=== PATIENT | female | born 1980 | race Caucasian/White ===

== ENCOUNTER 2019-02-17 10:34 | Outpatient (REF) | payer MEDICAID, SELFPAY ==
--- NOTE | 2019-02-17 10:00 | PAPFT_PTH ---
PATIENT: India Rodrigues LOC: [facility] U#:[id number] AGE/SX: 38/F ROOM: RE02/17/[address]: Radha Haney NP : 1980 BED: DIS: 02/17/2019 SPEC #: [id number] RECD: 02/17/19 12:48 STATUS: CON REReginaldo #: [id number] NANCY: 02/17/19 10:[address]: Radha Haney NP DEPT: [facility] Cytology RECD BY: Arpita Tenorio ENTERED: 02/17/19 12:48 SP TYPE: PAPFT OTHR DR: Basilia Gordon Tissues: 1 - CX/ENDOCX FOR PAP SMEARS Procedures: PAP THIN PREP/UVM Screening HPV DNA PROBE Comments: [id number] (CHLAMYDIA/GC)
[2019-02-18 15:05] LABS: Chlamydia Result Negative (Negative); GC Result Negative (Negative)
== END 2019-02-17 10:54 ==
LOC: LBN 10:34
PROVIDERS: PCP Nurse Practitioner Family; Visit Provider Nurse Practitioner Women's Health
DX: Z12.4 Encounter for screening for malignant neoplasm of cervix (principal); Z11.3 Encounter for screening for infections with a predominantly sexual mode of transmission
CPT/HCPCS: 87491; 87591; 88142; 87624

== ENCOUNTER 2022-05-08 01:53 | Outpatient (CLI) | payer MEDICAID, SELFPAY ==
--- NOTE | 2022-05-08 07:45 | DI.US_ITS ---
Exam(s) US PELVIS TRANSVAGINAL EXAM: US PELVIS TRANSVAGINAL CLINICAL HISTORY: Heavy menstrual bleeding,MENORRHAGIA, N92.0 TECHNIQUE: Transabdominal and transvaginal imaging was performed using standard protocol. COMPARISON: No exams were available for comparison FINDINGS: UTERUS: Anteverted. 8.9 x 4.7 x 6.2 cm Endometrium: 10 mm Myometrium: Unremarkable. Cervix: Unremarkable. OVARIES: Right: Cyst or mass: None. Left: Cyst or mass: None. DOPPLER: Color: Symmetric and uniform flow to both ovaries. No hyperemia. CUL-DE-SAC: Free fluid: None. IMPRESSION: 1. Normal-appearing uterus with endometrial stripe within normal limits. 2. Unremarkable bilateral ovaries. DATA REPOSITORY:
== END 2022-05-08 02:13 ==
LOC: DI 01:55
PROVIDERS: PCP Nurse Practitioner Family; Visit Provider Nurse Practitioner Women's Health
DX: N92.0 Excessive and frequent menstruation with regular cycle (principal)
CPT/HCPCS: 76830; 76856

== ENCOUNTER 2022-06-12 10:06 | Outpatient (CLI) | payer MEDICAID, SELFPAY ==
[2022-06-12 09:39] LABS: HCT 35.6 % (36.0-46.0); HGB 11.5 g/dL (11.2-15.7)
== END 2022-06-12 10:07 | disposition home or self-care (01) ==
LOC: LBO 10:06
PROVIDERS: PCP Nurse Practitioner Family; Visit Provider Obstetrics & Gynecology
DX: Z01.818 Encounter for other preprocedural examination (principal)
CPT/HCPCS: 36415; 86850; 86900; 86901; 85014; 85018

== ENCOUNTER 2022-06-14 08:40 | Day surgery (SDC) | payer MEDICAID, SELFPAY ==
[2022-06-14] VITALS (9 sets, daily range): BP systolic 94–153; BP diastolic 48–99; PULSE 53–76; RESP 11–16; TEMP 36.3–36.7; O2SAT 98–100; BMI 26.6
--- NOTE | 2022-06-14 09:06 | ANES.PREOP_ITS ---
General Info Date of Service Date Performed: 06/14/22 Height: 5 ft 8 in Weight: 79.379 kg Body Mass Index (BMI): 26.6 Surgical Procedure: Operation Date: 06/14/22 11:25 Proposed Procedure Side Surgeon p Endometrial Ablation- Sharon Frey MD s Salpingectomy Laparoscopic Bilateral Le Frey MD Meds Allergies and Home Medications Allergies Allergy/AdvReac Type Severity Reaction Status Date / Time doxycycline Allergy Nausea Verified 06/14/22 09:10 erythromycin base Allergy HIVES Unverified 06/14/22 09:09 Home Medication Medication Instructions Recorded magnesium oxide 400 mg PO DAILY 03/02/22 vitamin B complex 1 tab PO DAILY 03/02/22 oxycodone 5 mg capsule 5 mg PO Q6H PRN pain #5 caps 06/06/22 Current Visit Medications: Current Medications Generic Name Dose Route Start Last Admin Trade Name Freq PRN Reason Stop Dose Admin Ringer's Solution 1,000 mls @ 125 mls/hr 06/14/22 06:00 IV 07/13/22 23:59 INFUSION JOHN IV Miscellaneous Supplies 1 each 06/14/22 06:00 Iv Access IV 07/13/22 23:59 DIRECTED JOHN Sodium Chloride 0 ml 06/14/22 06:00 Normal Saline Flush 10 Ml Syr IV 07/13/22 23:59 PRN PRN Sodium Chloride 0 ml 06/14/22 06:00 Normal Saline 10 Ml Vial IJ 07/13/22 23:59 DIRECTED PRN Sterile Water 0 ml 06/14/22 06:00 Water,Injection,Sterile 10 Ml Vial IJ 07/13/22 23:59 DIRECTED PRN PFSH Active Problems Active Problems: Problem Status Onset Code Menorrhagia with regular cycle N92.0 Medical History Medical History Depression Skin lesion of face Snoring Tobacco Smoking/Tobacco Use Status: Never Passive smoking exposure: No Alcohol Alcohol Intake: current Alcohol intake frequency: a few times a month Substance Use Substance use: Never Substance use type: does not use Prental History History 2 Para 2 Hx # Term Pregnancies Multiple births Hx # Pregnancies Ectopic pregnancies AB induced Hx Number of Living Children AB spontaneous Past Pregnancies Del. Date GA/Weeks # Preg Succ Route Wgt Sex Labor Lgth Anesth esia Location Prov Complic 01/03/00 40 Yes vaginal 3260.195 g Female [facility] [place] 02/23/01 40 Yes vaginal 3543.69 g Male Adam [address] Delivery Date: 02/23/01 Last Updated by: Aleja Tyler Nuchal cord Vital Signs and Lab Results Vital Signs Most Recent Vital Signs in EMR: Temp Pulse Resp BP Pulse Ox 36.7 C 76 16 119/73 98 06/14/22 09:13 06/14/22 09:13 06/14/22 09:13 06/14/22 09:13 06/14/22 09:13 Lab Results Blood Type / Crossmatch: Patient ABO/Rh A Positive 06/12/22 Antibody Screen NEGATIVE 06/12/22 Complete Blood Count: Hemoglobin 11.5 g/dL (11.2-15.7) 06/12/22 09:25 Hematocrit 35.6 % (36.0-46.0) L 06/12/22 09:25 Complete Metabolic Panel: No Data to Display Liver Function Panel: No Data to Display Coagulation Panel: No Data to Display Cardiac Panel: No Data to Display Arterial Blood Gas: No Data to Display Venous Blood Gas: No Data to Display Pancreas Panel: No Data to Display Thyroid Panel: No Data to Display Infectious Disease: No Data to Display Blood Cultures: No Data to Display Toxicology Panel: No Data to Display Panel: No Data to Display Anesthesia Assessment and Plan Anesthesia History Personal History: No History of General Anesthesia Family History: No Family History of Anesthesia Complications Exercise Tolerance Exercise Tolerance: Metabolic Equivalents>4 Pertinent Negatives Pertinent Negatives: No Symptoms of GERD Cardiac & Pulmonary Exam Cardiac Exam: Normal S1/S2 Heart Sounds Pulmonary Exam: Clear Bilateral Breath Sounds Implantable Cardiac Device Does patient have a Pacemaker or an ICD?: No Airway Exam Known Difficult Airway: No Mallampati Class: 2 Mouth Opening: Normal (> 3cm) Thyromental Distance: Greater than 3 cm Neck Range of Motion: Full ROM Neck Circumference: Normal Teeth Condition: Normal Dentition ASA Classification ASA Score: ASA 2 Emergency Case?: No NPO Status NPO Status: NPO Clears >2 hours, Solids >8 hours Status Status: Negative HCG Anesthesia Plan Resuscitation Status: Full Code Anesthesia Technique: General Anesthesia Airway Planned: Endotracheal Tube Monitors Used: Standard Monitors Preoperative Comments:: 42 yo female for ablation and bilateral salping. Sig PMHx: ROLAN, depression, never smoker, occ EtOH.
[2022-06-14] MEDS: Lactated Ringers 1,000 ML 125 ML IV (09:36)
--- NOTE | 2022-06-14 12:33 | FALL_PTH ---
PATIENT: India Rodrigues LOC: [facility] U#:[id number] AGE/SX: 42/F ROOM: RE06/14/[address]: Le Frey MD : 1980 BED: DIS: 06/14/2022 SPEC #: [id number] RECD: 06/14/22 16:41 STATUS: CON REReginaldo #: [id number] NANCY: 06/14/22 12:[address]: Le Frey DEPT: Surgical Specimen RECD BY: Arpita Tenorio ENTERED: 06/14/22 16:45 SP TYPE: Fall OTHR DR: India Fuentes Tissues: 1 - FALLOPIAN TUBE (STERILIZATION) 2 - FALLOPIAN TUBE (STERILIZATION) 3 - ENDOMETRIUM BX/CURRETTE Procedures: GROSS AND MICRO LEVEL 2 GROSS AND MICRO LEVEL 4 Comments: [id number]
[2022-06-14] MEDS: Bupivacaine 0.25% Pres-Free 30 ML VIAL (12:38)
[2022-06-14] MEDS: fentaNYL 100 MCG/2 ML VIAL IVP (13:21)
--- NOTE | 2022-06-14 13:40 | W.PM.DSUDISC ---
Date of service: 06/14/22 Time of Service: 13:40 Discharge Plan Disposition Patient Disposition: Home Condition: Good Discharge Details Attending Provider: Le Frey Primary Care Provider: India Fuentes Home Meds and New Rx's Prescriptions: No Action oxycodone 5 mg capsule 5 mg PO Q6H MDD 4 PRN (Reason: pain) Qty: 5 0RF vitamin B complex Tablet 1 tab PO DAILY magnesium oxide 400 mg magnesium tablet 400 mg PO DAILY Discharge Instructions Stand Alone Forms: Anesthesia Discharge Inst., DSU Post Cable Driller SurgeryW/Incision, Press Ganey (DSU) Activity:: No lifting >20lbs Remove Dressings/Wound Care:: 24 hours Shower/Bathe:: 24 hours Diet:: As Tolerated Discharge Orders Discharge Orders: Discharge Order (Routine); Ordered 06/14/22 Ordered By: Le Frey DS: Diagnosis Discharge Diagnosis (1) Menorrhagia with regular cycle: Status: Acute Asessment and Plan: S/p uncomplicated endometrial ablation (2) Encounter for sterilization: Status: Acute Asessment and Plan: S/p uncomplicated Laparoscopic B/L tubal ligation
--- NOTE | 2022-06-14 14:11 | W.ANESPOSTOP ---
Postoperative Evaluation Date, Time and Location Date Performed: 06/14/22 Time Performed: 13:50 Patient Location: PACU Vital Signs Most Recent Imported Vital Signs: Most Recent Vital Signs Temp Pulse Resp BP Pulse Ox 36.7 C 55 L 11 L 94/48 L 100 06/14/22 14:02 06/14/22 14:02 06/14/22 14:02 06/14/22 14:02 06/14/22 14:02 Pain Score Most Recent Pain Score: Most Recent Pain Score Pain Level 4 06/14/22 14:02 Assessment Mental Status: Arousable with meaningful communication Airway and Respiratory Function: Patent airway with normal (patient baseline) respiratory exam Cardiovascular Function: Hemodynamically Stable Hydration Status: Adequately Hydrated Nausea & Vomiting: No Nausea or Vomiting Pain: Pain is Moderate or Severe Postoperative Pain Management: Pain being addressed with medication Peripheral Nerve Block: Patient did not receive a nerve block
[2022-06-14] MEDS: oxyCODONE 5 MG TAB PO (15:07)
--- NOTE | 2022-06-14 16:46 | W.PM.OP ---
Date of service: 06/14/22 Time of Service: 12:30 Operative Note Operative Note DATE OF PROCEDURE: 06/14/22 PRE-OP DIAGNOSIS: Abnormal uterine bleeding Desires permanent sterilization POST-OP DIAGNOSIS: same PROCEDURE: Laparoscopic bilateral tubal ligation via salpingectomy. Hysteroscopy, dilation and curettage, endometrial ablation with novasure. SURGEON: Le Frey ASSISTING SURGEON: Cassie Garay Refer to Anesthesia Record ESTIMATED BLOOD LOSS: 0 COMPLICATIONS: None Findings: Normal appearing uterus, ovaries, tubes. Normal abdominal cavity on brief inspection. Procedure Description: After informed consent was signed the patient was taken to the operating room and given general anesthesia.? SCDs were placed on her legs.? She was prepped and draped in the dorsal lithotomy position in the [facility].? Her bladder was drained of urine prior to arrival in the OR. The infraumbilical fold was grasped and injected with 0.25% marcaine with epinephrine. A 5mm incision was made in the infraumbilical fold with the scalpel. A hemostat was used to bluntly dissect the subcuticular layers. The fascia was grasped with jessenia clamps and incised. The incision was entended with blunt pressure. The perintoneum was grasped and incised with metzembaum scissors. The visiport was used to enter the abdomen under direct visualization. Once entrance to the abdominal cavity was confirmed the CO2 was turned on and the abdomen was insufflated. Two lateral 5mm ports were then placed under direct visualization. The left tube was identified and followed to the fimbriated end. The tube was grasped and elevated and the mesosalpinx was clamped, cauterized and cut with the ligasure device. The was continued along the length of the tube. The proximal end of the tube was then transected with the ligasure. Good hemostasis was noted. The right tube was then identified and followed to the fimbriated end. The tube was grasped and elevated and the mesosalpinx was clamped, cauterized and cut with the ligasure device. The was continued along the length of the tube. The proximal end of the tube was then transected with the ligasure. Good hemostasis was noted on both sides. The ports were removed. The gas was released from the abdomen. The skin incisions were then closed with 4-0 vicryl. Mastisol and steristrips were placed. A speculum was placed into the vagina to reveal the cervix.? The anterior lip of the cervix was grasped with a single tooth tenaculum.? The cervical length was measured with a large dilator. The cervix was then dilated until a uterine sound could be inserted to measure the total length. The?cavity length was then calculated. The hysteroscope was assembled and the uterine cavity was visualized. No obvious abnormalities were noted. A sharp curettage was performed. The novasure device was opened and the cavity length set. It was inserted into the endometrial cavity and the width was measured. The cavity assessment was performed and passed. The device was then deployed for the appropriate amount of time. The device was removed and the wand inspected and appeared thoroughly charred. The hysteroscope was again inserted into the endometrial cavity and it appeared to be thoroughly treated. It was removed from the endometrial cavity. The tenaculum was removed from the cervix with good hemostasis.? The speculum was removed from the vagina. The patient was placed back into the supine position.? She was moved to the stretcher and taken to the recovery room in stable condition.
== END 2022-06-14 15:38 | disposition home or self-care (01) ==
PROVIDERS: PCP Nurse Practitioner Family; Visit Provider Obstetrics & Gynecology
PROC: (CPT 58353; principal; 2022-06-14 11:15)
PROC: (CPT 58661; 2022-06-14 11:15)
DX: N92.0 Excessive and frequent menstruation with regular cycle (principal); Z30.2 Encounter for sterilization
CPT/HCPCS: 58661; 58563; 81025; 88305; 88302; J0131; J1100; J1885; J2250; J2405; J2704; J3010; J3475

== ENCOUNTER 2023-04-24 14:22 | Outpatient (REF) | payer MEDICAID, SELFPAY ==
--- NOTE | 2023-04-24 13:48 | PAPFT_PTH ---
PATIENT: India Rodrigues LOC: [facility] U#:[id number] AGE/SX: 43/F ROOM: RE04/24/[address]: Le Frey MD : 1980 BED: DIS: 04/24/2023 SPEC #: [id number] RECD: 04/24/23 17:49 STATUS: CON REQ #: [id number] NANCY: 04/24/23 13:[address]: Le Frey DEPT: [facility] Cytology RECD BY: Arpita Tenorio ENTERED: 04/24/23 17:50 SP TYPE: PAPFT OTHR DR: India Fuentes Tissues: 1 - CX/ENDOCX FOR PAP SMEARS Procedures: PAP THIN PREP/UVM Screening HPV DNA PROBE Comments: [id number]
== END 2023-04-24 14:23 | disposition home or self-care (01) ==
LOC: LBN 14:22
PROVIDERS: PCP Nurse Practitioner Family; Visit Provider Obstetrics & Gynecology
DX: Z12.4 Encounter for screening for malignant neoplasm of cervix (principal); Z72.51 High risk heterosexual behavior; Z01.419 Encounter for gynecological examination (general) (routine) without abnormal findings
CPT/HCPCS: 88142; 87624

== ENCOUNTER → 2023-05-02 01:30 | Outpatient (CLI) | payer MEDICAID, SELFPAY ==
--- NOTE | 2023-05-02 09:04 | DI.MAMMO_ITS ---
Exam(s) MAMMO SCREENING EXAM: MAMMO SCREENING CLINICAL HISTORY: screening TECHNIQUE: Bilateral full field digital CC and MLO mammographic images were obtained with 3D tomosyn thesis and utilizing computer aided detection (CAD). COMPARISON: Is a baseline examination. FINDINGS: Masses/Architectural Distortion: There is a partially obscured 1.4 cm nodule in the upper outer quadr ant of the left breast. On the craniocaudad view there also appears to be a partially obscured nodul e more medial measuring 1.2 cm. No areas of architectural distortion are seen. Microcalcifications: No suspicious pleomorphic-type are seen. Skin Thickening/Nipple Retraction: None. IMPRESSION: 1. Left breast nodules. 2. These nodules should be further evaluated with spot compression views. Ultrasound should also be obtained at that time. BI-RADS Category 0 - Assessment Incomplete: Need additional imaging evaluation Breast Density - Category B - Scattered areas of fibroglandular density Breast density category C or D implies that the patient has dense breast tissue. Dense breast tissue is very common and is not abnormal but dense breast tissue can make it harder to find cancer on a ma mmogram. Also, dense breast tissue may increase their breast cancer risk. This information about the result of the mammogram report was provided to the patient to raise their awareness. Use this report when you speak with the patient about their risks for breast cancer, which includes their family hist ory. At that time, you may recommend for more screening tests (Ultrasound or MRI) as they might be us eful based on their risk. A negative radiographic report should not delay biopsy if a dominant or clinically suspicious mass is present. Up to ten percent of cancers are not identified on mammography. A negative report may reinforce clinical impression. Adenosis and dense breasts may obscure an underlying neoplasm. False positive reports average 6 to 10%. Patient will receive a letter notifying them of these results.
== END ==
PROVIDERS: PCP Nurse Practitioner Family; Visit Provider Obstetrics & Gynecology
DX: Z12.31 Encounter for screening mammogram for malignant neoplasm of breast (principal); R92.8 Other abnormal and inconclusive findings on diagnostic imaging of breast
CPT/HCPCS: 77063; 77067

== ENCOUNTER → 2023-05-08 01:09 | Outpatient (CLI) | payer MEDICAID, SELFPAY ==
--- NOTE | 2023-05-08 | DI.US_ITS ---
Exam(s) MG MAMMO SCREEN CALL BACK UNI US BREAST LT LIMITED EXAM: MG MAMMO SCREEN CALL BACK UNI and U/S breast LT limited CLINICAL HISTORY: F/U MAMMO, LT BREAST NODULES,R92.8. TECHNIQUE: Craniocaudal and mediolateral oblique Full Field Digital Mammography views of the left br east with Computer Aided Diagnosis followed by Tomosynthesis and left breast ultrasound. COMPARISON: Comparison is made with prior examinations. FINDINGS: Mammography/Tomosynthesis: Masses/Architectural Distortion: There is a well-circumscribed nodule at the 2 to 3 o'clock position of the left breast measuring 1.3 cm on the mammogram. No areas of architectural distortion are prese nt. Microcalcifictions: No suspicious pleomorphic-type are seen. Skin Thickening/Nipple Retraction: None. Limited left breast US: Echotexture: Normal appearance of the glandular tissue. Shadowing: No suspicious foci. Cyst: None. Solid lesions: There is a well-circumscribed nodule in the left breast at the 2 o'clock position david uring 1.0 cm in diameter. This is most suggestive of benign lesion such as a fibroadenoma. Ductal dilation: None. IMPRESSION: 1. No evidence of malignancy is noted. 2. A six-month follow-up left mammogram and ultrasound is requested for re-evaluation. 3. The findings were discussed with the patient on the date of the examination. BI-RADS Category 3 - 6 month - Probably Benign Finding: Recommend follow-up imaging in 6 months Breast Density - Category B - Scattered areas of fibroglandular density Breast density Category C or D implies that the patient has dense breast tissue. Dense breast tissue can make it harder to find cancer on a mammogram. Dense breast tissue is also associated with an incr eased risk of breast cancer. This information about the result of the mammogram report was provided to the patient to raise their awareness. Use this report when you speak with the patient about their risks for breast cancer, which includes their family history. At that time, you may recommend additional screening tests (Ultrasoun d or MRI) as these tests may add significant information. A negative radiographic report should not delay biopsy if a dominant or clinically suspicious mass is present. Up to ten percent of cancers are not identified on mammography. A negative report may reinforce clinical impression. Adenosis and dense breasts may obscure an underlying neoplasm. False positive reports average 6 to 10%. Patient will receive a letter notifying them of these results.
== END ==
PROVIDERS: PCP Nurse Practitioner Family; Visit Provider Obstetrics & Gynecology
DX: Z12.31 Encounter for screening mammogram for malignant neoplasm of breast (principal); R92.8 Other abnormal and inconclusive findings on diagnostic imaging of breast
CPT/HCPCS: 76642; 77063; 77067

== ENCOUNTER 2023-11-08 02:33 | Outpatient (CLI) | payer MEDICAID, SELFPAY ==
--- NOTE | 2023-11-08 07:00 | DI.MAMMO_ITS ---
Exam(s) MG MAMMO DIAGNOSTIC UNI US BREAST LT LIMITED EXAM: MG MAMMO DIAGNOSTIC UNI and U/S breast LT limited CLINICAL HISTORY: 6 mo f/u lt nodule, r92.8. TECHNIQUE: Craniocaudal and mediolateral oblique Full Field Digital Mammography views of the left br east with Computer Aided Diagnosis followed by Tomosynthesis and left breast ultrasound. COMPARISON: Comparison is made with prior examinations. FINDINGS: Mammography/Tomosynthesis: Masses/Architectural Distortion: There is again seen a bilobed nodule in the posterior lateral left b reast. It is unchanged in size compared to the prior examination. No areas of architectural distort ion are seen. Microcalcifictions: No suspicious pleomorphic-type are seen. Skin Thickening/Nipple Retraction: None. Limited left breast US: Echotexture: Normal appearance of the glandular tissue. Shadowing: No suspicious foci. Cyst: None. Solid lesions: There is a hypoechoic bilobed nodule at the 4 o'clock position of the left breast. It has a similar appearance to the new nodule seen on the ultrasound dated 05/08/2023. No internal blood flow or posterior acoustic enhancement or shadowing is seen. Ductal dilation: None. IMPRESSION: 1. Stable bilobed nodule in the left breast. 2. A six-month follow-up left mammogram and left breast ultrasound are requested for re-evaluation. 3. The findings were discussed with the patient on the date of the examination. BI-RADS Category 3 - 6 month - Probably Benign Finding: Recommend follow-up imaging in 6 months Breast Density - Category B - Scattered areas of fibroglandular density Breast density Category C or D implies that the patient has dense breast tissue. Dense breast tissue can make it harder to find cancer on a mammogram. Dense breast tissue is also associated with an incr eased risk of breast cancer. This information about the result of the mammogram report was provided to the patient to raise their awareness. Use this report when you speak with the patient about their risks for breast cancer, which includes their family history. At that time, you may recommend additional screening tests (Ultrasoun d or MRI) as these tests may add significant information. A negative radiographic report should not delay biopsy if a dominant or clinically suspicious mass is present. Up to ten percent of cancers are not identified on mammography. A negative report may reinforce clinical impression. Adenosis and dense breasts may obscure an underlying neoplasm. False positive reports average 6 to 10%. Patient will receive a letter notifying them of these results.
== END 2023-11-08 02:53 ==
LOC: DI 02:33
PROVIDERS: PCP Nurse Practitioner Family; Visit Provider Obstetrics & Gynecology
DX: R92.8 Other abnormal and inconclusive findings on diagnostic imaging of breast (principal); Z12.31 Encounter for screening mammogram for malignant neoplasm of breast
CPT/HCPCS: 76642; 77061; 77065; G0279

== ENCOUNTER 2024-05-15 01:12 | Outpatient (CLI) | payer MEDICAID, SELFPAY ==
--- NOTE | 2024-05-15 07:45 | DI.MAMMO_ITS ---
Exam(s) US BREAST LT LIMITED MG MAMMO DIAGNOSTIC BI EXAM: MG MAMMO DIAGNOSTIC BI and U/S breast LT limited CLINICAL HISTORY: 6 mo f/u,lt breast nodule,r92.8. TECHNIQUE: Craniocaudal and mediolateral oblique Full Field Digital Mammography views with Computer Aided Diagnosis followed by Tomosynthesis and limited left breast ultrasound. COMPARISON: Comparison is made with prior examinations. FINDINGS: Mammography/Tomosynthesis: Masses/Architectural Distortion: There is again seen a well-circumscribed nodule in the upper outer q uadrant of the left breast. No new nodules are seen in either breast. No areas of architectural dis tortion are present. Microcalcifictions: No suspicious pleomorphic-type are seen. Skin Thickening/Nipple Retraction: None. Limited left breast US: Echotexture: Normal appearance of the glandular tissue. Shadowing: No suspicious foci. Cyst: There is an area at the 1 o'clock position of the left breast which shows a small cyst present. It measures approximately 2 mm. Solid lesions: There is again seen a hypoechoic ovoid nodule at the 4 o'clock position of the left br east. It is unchanged compared to the prior examination. No internal blood flow is seen. The well- circumscribed hypoechoic lesion at the 2 o'clock position of the left breast is also unchanged. Ductal dilation: None. IMPRESSION: 1. Stable appearance of the left breast sonographically and mammographically. 2. A six-month follow-up left mammogram and left breast ultrasound are requested for re-evaluation. 3. The findings were discussed with the patient on the date of the examination. BI-RADS Category 3 - 6 month - Probably Benign Finding: Recommend follow-up imaging in 6 months Breast Density - Category C - Heterogeneously dense Breast density Category C or D implies that the patient has dense breast tissue. Dense breast tissue can make it harder to find cancer on a mammogram. Dense breast tissue is also associated with an incr eased risk of breast cancer. This information about the result of the mammogram report was provided to the patient to raise their awareness. Use this report when you speak with the patient about their risks for breast cancer, which includes their family history. At that time, you may recommend additional screening tests (Ultrasoun d or MRI) as these tests may add significant information. A negative radiographic report should not delay biopsy if a dominant or clinically suspicious mass is present. Up to ten percent of cancers are not identified on mammography. A negative report may reinforce clinical impression. Adenosis and dense breasts may obscure an underlying neoplasm. False positive reports average 6 to 10%. Patient will receive a letter notifying them of these results.
== END 2024-05-15 01:32 ==
LOC: DI 01:12
PROVIDERS: PCP Nurse Practitioner Family; Visit Provider Obstetrics & Gynecology
DX: R92.8 Other abnormal and inconclusive findings on diagnostic imaging of breast (principal); Z12.31 Encounter for screening mammogram for malignant neoplasm of breast
CPT/HCPCS: 76642; 77062; 77066; G0279

== ENCOUNTER 2024-12-15 02:19 | Outpatient (CLI) | payer MEDICAID, SELFPAY ==
--- NOTE | 2024-12-15 10:30 | DI.US_ITS ---
Exam(s) MG MAMMO DIAGNOSTIC UNI US BREAST LT LIMITED EXAM: MG MAMMO DIAGNOSTIC UNI CLINICAL HISTORY: ABN INCONCLUSIVE FINDINGS OF LT BREAST, R92.8,6 MO F/U. TECHNIQUE: Craniocaudal and mediolateral oblique spot compression digital Mammography views of the leftbreast with Tomosynthesis and left breast ultrasound. COMPARISON: 2023 and 2024 FINDINGS: Mammography/Tomosynthesis: Masses: Stable area nodularity in the upper outer quadrant. Architectural Distortion: None seen. Microcalcifictions: No suspicious pleomorphic-type are seen. Skin Thickening/Nipple Retraction: None. Left breast US: Echotexture: Normal appearance of the glandular tissue. Shadowing: No suspicious foci. Cyst: None. Solid lesions: Circumscribed nodule 1 o'clock position 3 cm from the nipple measuring 1 cm. 6 millimeter hypoechoic lesion 2 o'clock position 2 cm from the nipple. 1 centimeter hypoechoic circumscribed nodule in the 3 o'clock position 3 cm from the nipple. Ductal dilation: None. IMPRESSION: 1. No evidence of malignancy is noted. 2. Bilateral screening mammography is due in May 2025. 3. The findings were discussed with the patient on the date of the examination. BI-RADS Category 3 - Annual - Resume Annual Screening Breast Density - Category C - The breast are heterogeneously dense, which may obscure small masses. Breast density Category C or D implies that the patient has dense breast tissue. Dense breast tissue can make it harder to find cancer on a mammogram. Dense breast tissue is also associated with an increased risk of breast cancer. This information about the result of the mammogram report was provided to the patient to raise their awareness. Use this report when you speak with the patient about their risks for breast cancer, which includes their family history. At that time, you may recommend additional screening tests (Ultrasound or MRI) as these tests may add significant information. A negative radiographic report should not delay biopsy if a dominant or clinically suspicious mass is present. Up to ten percent of cancers are not identified on mammography. A negative report may reinforce clinical impression. Adenosis and dense breasts may obscure an underlying neoplasm. False positive reports average 6 to 10%. Patient will receive a letter notifying them of these results.
== END 2024-12-15 02:39 ==
LOC: DI 02:19
PROVIDERS: PCP Nurse Practitioner Family; Visit Provider Nurse Practitioner Family
DX: Z12.31 Encounter for screening mammogram for malignant neoplasm of breast (principal); N63.21 Unspecified lump in the left breast, upper outer quadrant
CPT/HCPCS: 76642; 77061; 77065; G0279